=== PATIENT | male | born 1955 ===

== ENCOUNTER 2024-02-05 10:44 | Inpatient (IN) ==
[2024-02-09 12:55] LABS: Glucose Confirmatory 437 mg/dL (70-100)
[2024-02-09] MEDS ORDERED: Senna TAB 8.6 mg TAB PO PRN (13:30)
[2024-02-09] MEDS ORDERED: Dextrose 50% Syringe 50 ml 25 GM/50 ML SYRINGE IV PUSH PRN (13:30)
[2024-02-09] MEDS ORDERED: Magnesium Hydroxide LIQ 30 ML UDC PO PRN (13:30)
[2024-02-09] MEDS ORDERED: Albuterol HFA INHALER 8 gm MDI INH PRN (13:50)
[2024-02-09 17:51] LABS: Glucose Confirmatory 409 mg/dL (70-100)
[2024-02-10 07:22] LABS: Albumin/Globulin Ratio 1.4 (1-3); Calcium 8.2 mg/dL (8.6-10.3); Creatinine, Serum 0.89 mg/dL (0.67-1.17); Globulin 2.1 g/dL (2-4); Potassium 5.4 mmol/L (3.5-5.0); Total Protein 5.1 g/dL (6.4-8.9); eGFR CKD-EPI 93.3 (>60)
[2024-02-10 07:25] LABS: ABS Basophils 0.1 10^3/uL (0.0-0.1); ABS Eosinophils 0.3 10^3/uL (0.0-0.5); ABS Lymphocytes 1.7 10^3/uL (1.0-4.8); ABS Monocytes 0.7 10^3/uL (0.0-1.1); ABS Neutrophils 8.5 10^3/uL (1.5-7.6); ABS Nucleated RBC 0.01 10^3/ul; Eosinophil % 2.7 %; Hematocrit 38.1 % (38-53); Hemoglobin 12.7 g/dL (13.2-16.3); Lymphocyte % 15.3 %; Mean Corpuscular Hemoglobin 30.5 pg (27-33); Mean Corpuscular Hgb Conc 33.3 g/dL (31-36); Mean Corpuscular Volume 91.5 fL (80-97); Mean Platelet Volume 8.9 fL (7.5-11.2); Platelet Count 350 10^3/uL (150-450); Red Blood Count 4.16 10^6/uL (4.06-5.63); Red Cell Distribution Width 14.4 % (12-17); White Blood Count 11.3 10^3/uL (3.6-10.2)
[2024-02-10 07:38] LABS: Glucose Confirmatory 421 mg/dL (70-100)
[2024-02-10] MEDS: Fluticasone NASAL SPRAY 50MCG 16 gm SPRAY BTL BOTH NARES SCH (07:56)
[2024-02-10] MEDS: Insulin GLARGINE 100 un/ml 10 ml VIAL SUBCUT SCH (21:25)
[2024-02-11] MEDS: Insulin GLARGINE 100 un/ml 10 ml VIAL SUBCUT ONE (21:38)
[2024-02-12] MEDS ORDERED: Insulin GLARGINE 100 un/ml 10 ml VIAL SUBCUT SCH ×2 (21:00)
[2024-02-13 06:35] VITALS: BP 133/64
[2024-02-13 07:38] LABS: Glucose Confirmatory 412 mg/dL (70-100)
== END 2024-02-13 12:40 | disposition home or self-care (01) | DRG 91 ==
LOC: PMRU 02-09 10:34
PROVIDERS: ADMIT Physical Medicine & Rehabilitation; ATTEND Physical Medicine & Rehabilitation